=== PATIENT | male | born 1950 | race African-American/Black ===

== ENCOUNTER 2021-01-28 07:09 | Observation (INO) | payer MEDICARE, OTHER ==
[2021-01-28 10:41] VITALS: BMI 29.5
[2021-01-28] MEDS ORDERED: Dextrose 50% Abboject 50 ML SYRINGE SLOW IVP PRN (11:18)
[2021-01-28] MEDS ORDERED: Dextrose 5% in Water 1,000 ML IV PRN (11:18)
[2021-01-28] MEDS ORDERED: Ondansetron PF 4 MG/2 ML Vial IVP PRN (11:24)
[2021-01-28] MEDS ORDERED: HumaLOG 300 UNITS/3 ML VIAL SC PRN (11:24)
[2021-01-28] MEDS ORDERED: Acetaminophen 325 MG TAB PO PRN (11:24)
[2021-01-28] MEDS ORDERED: traZODone HCl 50 MG TAB PO PRN (12:00)
[2021-01-28] MEDS ORDERED: Sevelamer Carbonate 800 MG TAB PO SCH (12:00)
[2021-01-28] MEDS ORDERED: Nitroglycerin 0.4 MG TAB (25 Tab Bottle) SL PRN (12:18)
[2021-01-28 12:55] LABS: Troponin I 0.034 ng/mL (< 0.028)
[2021-01-28] MEDS ORDERED: Benzonatate 100 MG CAP PO SCH (15:00)
[2021-01-28 15:46] VITALS: BP 162/62; TEMP 98.5
[2021-01-28] MEDS ORDERED: Apixaban 5 MG TAB PO SCH (21:00)
[2021-01-28] MEDS ORDERED: Carvedilol 25 MG TAB PO SCH (21:00)
[2021-01-28] MEDS ORDERED: Atorvastatin Calcium 10 MG TAB PO SCH (21:00)
[2021-01-29] MEDS ORDERED: Aspirin 81 mg Enteric Coated Tablet PO SCH (09:00)
[2021-01-29] MEDS ORDERED: Amiodarone 200 MG TAB PO SCH (09:00)
[2021-01-29] MEDS ORDERED: Ezetimibe 10 MG TAB PO SCH (09:00)
[2021-01-29] MEDS ORDERED: Famotidine/PF 20 mg/2ml Vial SLOW IVP SCH (09:00)
== END 2021-01-28 17:10 | disposition home or self-care (01) ==
LOC: CSHTELE 10:30
PROVIDERS: ADMIT Internal Medicine; ATTEND Family Medicine
DX: R77.8 Other specified abnormalities of plasma proteins (principal); E11.22 Type 2 diabetes mellitus with diabetic chronic kidney disease; I12.0 Hypertensive chronic kidney disease with stage 5 chronic kidney disease or end stage renal disease; N18.6 End stage renal disease; I48.0 Paroxysmal atrial fibrillation; E78.5 Hyperlipidemia, unspecified; I25.10 Atherosclerotic heart disease of native coronary artery without angina pectoris; I73.9 Peripheral vascular disease, unspecified; Z79.899 Other long term (current) drug therapy; Z79.82 Long term (current) use of aspirin; Z95.5 Presence of coronary angioplasty implant and graft; E87.70 Fluid overload, unspecified
CPT/HCPCS: 36415; 36416; G0378; J1815

== ENCOUNTER 2021-03-21 01:37 | Inpatient (IN) | payer MEDICARE, MEDICAID ==
[2021-03-21] MEDS ORDERED: Dextrose 50% Abboject 50 ML SYRINGE SLOW IVP SCH (02:00)
[2021-03-21 02:41] LABS: #Eosinphils 0.2 10x3/uL (0.0-0.5); #Monocytes 0.7 10x3/uL (0.0-1.1); #Neutrophils 9.2 10x3/uL (1.5-8.4); %Basophils 0.4 % (0.0-2.0); %Eosinophils 1.4 % (0.0-6.0); %Lymphocytes 6.4 % (18.0-47.0); %Monocytes 6.6 % (0.0-10.0); %Neutrophils 84.6 % (40.0-75.0); Hemoglobin 7.2 g/dL (13.5-17.5); Mean Corpuscular Hemoglobin 24.7 pg (27.0-33.0); Mean Corpuscular Volume 88.3 fl (81.2-95.1); Mean Platelet Volume 10.8 fl (7.4-10.4); Platelet Count 433 10x3/uL (150-450); RBC Distribution Width 18.4 % (11.5-14.5); Red Blood Cell (RBC) Count 2.91 10x6/uL (4.32-5.72); White Blood Cell (WBC) Count 10.9 10x3/uL (3.5-10.5)
[2021-03-21] MEDS ORDERED: Cefepime 2 GM VIAL ONE (02:49)
[2021-03-21 02:55] LABS: ALT (SGPT) 10 U/L (8-55); AST (SGOT) 12 U/L (5-34); Albumin 2.9 g/dL (3.4-4.8); Alkaline Phosphatase 163 U/L (40-110); Anion Gap 15 mmol/L (10-20); BUN (Urea Nitrogen) 17 mg/dL (8.4-25.7); Bilirubin, Total 0.5 mg/dL (0.2-1.2); Calc. Creatinine Clearance 0 mL/min (70-130); Calcium 10.6 mg/dL (7.8-10.44); Carbon Dioxide 28 mmol/L (23-31); Chloride 100 mmol/L (98-107); Globulin 4.1 g/dL (2.4-3.5); Glucose 197 mg/dL (83-110); Potassium 4.6 mmol/L (3.5-5.1); Sodium 138 mmol/L (136-145)
[2021-03-21 03:14] LABS: Hypochromia SLIGHT = 6-15 cells (100X) (0-5/hpf); Polychromasia SLIGHT = 2-3 cells (100X) (0-2/hpf)
[2021-03-21 03:16] LABS: Platelet Morphology Comment Appears Increased
[2021-03-21 03:19] LABS: Bilirubin Neg (Negative); Blood, Urine 250 (Negative); Clarity Cloudy (Clear); Glucose, Urine (Dipstick) Normal (Negative); Ketone, Urine 5 mg/dL (Negative); Leukocyte 500 (Negative); Nitrite Negative (Negative); Protein, Urine (Dipstick) 100 mg/dl (Neg-Trace); Urobilinogen Normal mg/dL (Less than 2)
[2021-03-21 03:39] LABS: Bacteria/HPF 2+ HPF (None Seen); RBC/HPF Greater than 50 HPF (0-3); Squamous Epithelial 0-3 HPF (0-3); WBC/HPF Greater Than 50 HPF (0-3)
[2021-03-21 04:09] LABS: SARS-CoV-2 NAA Rapid Test Not Detected (NotDetected)
[2021-03-21] MEDS ORDERED: Acetaminophen 325 MG TAB PO PRN (05:26)
[2021-03-21] MEDS ORDERED: HumaLOG 300 UNITS/3 ML VIAL SC PRN (05:26)
[2021-03-21] MEDS ORDERED: Guaifenesin DM 100-10/5 ML UDCUP PO PRN (05:26)
[2021-03-21] MEDS ORDERED: Calcium Carbonate 500 MG ChewTAB PO PRN (05:26)
[2021-03-21] MEDS ORDERED: Dextrose 5% in Water 1,000 ML IV PRN (05:26)
[2021-03-21] MEDS ORDERED: Senokot S 8.6-50 MG TAB PO PRN (05:26)
[2021-03-21] MEDS ORDERED: Dextrose 50% Abboject 50 ML SYRINGE SLOW IVP PRN (05:26)
[2021-03-21] MEDS ORDERED: Zolpidem Tartrate 5 MG TAB PO PRN (05:26)
[2021-03-21] MEDS ORDERED: traZODone HCl 50 MG TAB PO PRN (05:31)
[2021-03-21] MEDS ORDERED: Albuterol 200 PUFF (6.7GM INHALER) INH PRN (05:31)
[2021-03-21] MEDS ORDERED: Bisacodyl 10 MG SUPP PR PRN (05:31)
[2021-03-21] MEDS ORDERED: Dextrose 10% in Water 1,000 ML IV SCH ×2 (05:45→18:30)
[2021-03-21] MEDS: Apixaban 5 MG TAB PO SCH ×3 (08:59→20:54)
[2021-03-21] MEDS: Sevelamer Carbonate 800 MG TAB PO SCH ×3 (08:59→17:13)
[2021-03-21] MEDS: Amiodarone 200 MG TAB PO SCH ×2 (08:59→09:13)
[2021-03-21] MEDS: Carvedilol 25 MG TAB PO SCH ×3 (08:59→20:51)
[2021-03-21] MEDS ORDERED: Cefepime 1 GM in Sodium Chloride 0.9% 100 ML IVPB SCH (09:00)
[2021-03-21] MEDS ORDERED: EPOETIN ALFA-EPBX (ESRD) 10,000 UNIT/ML VIAL SC SCH (09:00)
[2021-03-21] MEDS: Aspirin 81 mg Enteric Coated Tablet PO SCH (09:00)
[2021-03-21] MEDS: Ascorbic Acid 500 mg Chewable Tablet PO SCH ×2 (09:00→20:51)
[2021-03-21] MEDS ORDERED: prednisoLONE 1% Ophth Susp 5 ml Bottle EA EYE SCH (09:00)
[2021-03-21] MEDS: Cholecalciferol 1,000 UNITS (25 MCG) TAB PO SCH (09:01)
[2021-03-21] MEDS: Atorvastatin Calcium 10 MG TAB PO SCH (09:01)
[2021-03-21] MEDS: Cinacalcet HCl 30 MG TAB PO SCH (09:01)
[2021-03-21] MEDS: Polyethylene Glycol 3350 17 GM Packet PO SCH (09:02)
[2021-03-21] MEDS: hydrALAZINE 25 MG TAB PO SCH (09:03)
[2021-03-21] MEDS: Ferrous Sulfate 325 MG TAB PO SCH ×2 (09:03→20:51)
[2021-03-21] MEDS: Senokot S 8.6-50 MG TAB PO SCH ×2 (09:03→20:51)
[2021-03-21] MEDS: Timolol 0.5% Ophth Soln 5 ml Bottle EA EYE SCH ×2 (10:24→20:54)
[2021-03-21] MEDS ORDERED: EPOETIN ALFA-EPBX (ESRD) 4,000 UNIT/ML VIAL SC SCH (15:15)
[2021-03-21 18:48] LABS: #Eosinphils 0.2 10x3/uL (0.0-0.5); #Neutrophils 6.3 10x3/uL (1.5-8.4); %Basophils 0.4 % (0.0-2.0); %Eosinophils 2.4 % (0.0-6.0); %Lymphocytes 15.6 % (18.0-47.0); %Monocytes 11.5 % (0.0-10.0); %Neutrophils 69.8 % (40.0-75.0); Hemoglobin 6.6 g/dL (13.5-17.5); Mean Corpuscular HGB CONC 27.8 g/dL (32.0-36.0); Mean Corpuscular Hemoglobin 24.1 pg (27.0-33.0); Mean Corpuscular Volume 86.5 fl (81.2-95.1); Mean Platelet Volume 10.3 fl (7.4-10.4); Platelet Count 398 10x3/uL (150-450); RBC Distribution Width 18.6 % (11.5-14.5); Red Blood Cell (RBC) Count 2.74 10x6/uL (4.32-5.72)
[2021-03-21 19:09] LABS: Anisocytosis SLIGHT = 6-15 cells (100X) (0-5/hpf); Hypochromia MODERATE=16-30 cells (100X) (0-5/hpf); Platelet Morphology Comment Appears Adequate
[2021-03-21] MEDS: Ezetimibe 10 MG TAB PO SCH (20:54)
[2021-03-22] MEDS: Ondansetron PF 4 MG/2 ML Vial IVP PRN ×3 (00:35→20:56)
[2021-03-22 05:13] LABS: #Eosinphils 0.4 10x3/uL (0.0-0.5); #Monocytes 1.2 10x3/uL (0.0-1.1); #Neutrophils 6.8 10x3/uL (1.5-8.4); %Basophils 0.3 % (0.0-2.0); %Eosinophils 3.5 % (0.0-6.0); %Lymphocytes 18.5 % (18.0-47.0); %Monocytes 11.7 % (0.0-10.0); %Neutrophils 65.4 % (40.0-75.0); Mean Corpuscular HGB CONC 28.8 g/dL (32.0-36.0); Mean Corpuscular Hemoglobin 25.3 pg (27.0-33.0); Mean Corpuscular Volume 87.8 fl (81.2-95.1); Mean Platelet Volume 10.3 fl (7.4-10.4); Platelet Count 417 10x3/uL (150-450); RBC Distribution Width 17.8 % (11.5-14.5); Red Blood Cell (RBC) Count 2.37 10x6/uL (4.32-5.72); White Blood Cell (WBC) Count 10.4 10x3/uL (3.5-10.5)
[2021-03-22 05:16] LABS: Anion Gap 17 mmol/L (10-20); BUN (Urea Nitrogen) 28 mg/dL (8.4-25.7); Calc. Creatinine Clearance 22 mL/min (70-130); Carbon Dioxide 22 mmol/L (23-31); Chloride 98 mmol/L (98-107); Glucose 103 mg/dL (83-110); Potassium 4.6 mmol/L (3.5-5.1); Sodium 132 mmol/L (136-145)
[2021-03-22 06:28] LABS: #Basophils 0.1 10x3/uL (0.0-0.2); #Eosinphils 0.4 10x3/uL (0.0-0.5); #Monocytes 1.3 10x3/uL (0.0-1.1); #Neutrophils 6.4 10x3/uL (1.5-8.4); %Basophils 0.5 % (0.0-2.0); %Eosinophils 3.9 % (0.0-6.0); %Lymphocytes 17.4 % (18.0-47.0); %Monocytes 12.9 % (0.0-10.0); %Neutrophils 64.8 % (40.0-75.0); Hemoglobin 7.2 g/dL (13.5-17.5); Mean Corpuscular HGB CONC 29.1 g/dL (32.0-36.0); Mean Corpuscular Hemoglobin 25.4 pg (27.0-33.0); Mean Corpuscular Volume 87.3 fl (81.2-95.1); Mean Platelet Volume 10.3 fl (7.4-10.4); Platelet Count 353 10x3/uL (150-450); RBC Distribution Width 17.8 % (11.5-14.5); Red Blood Cell (RBC) Count 2.83 10x6/uL (4.32-5.72); White Blood Cell (WBC) Count 9.8 10x3/uL (3.5-10.5)
[2021-03-22 07:14] LABS: Anisocytosis SLIGHT = 6-15 cells (100X) (0-5/hpf); Hypochromia MODERATE=16-30 cells (100X) (0-5/hpf); Poikilocytosis SLIGHT = 6-15 cells (100X) (0-5/hpf); Polychromasia SLIGHT = 2-3 cells (100X) (0-2/hpf)
[2021-03-22 07:15] LABS: Ovalocytes SLIGHT = 2-5 cells (100X) (0-1/hpf); Schistocytes SLIGHT = 2-5 cells (100X) (0-1/hpf); Stomatocytes SLIGHT = 2-5 cells (100X) (0-1/hpf); Tear Drops SLIGHT = 2-5 cells (100X) (0-1/hpf)
[2021-03-22 07:16] LABS: Platelet Morphology Comment Appears Increased
[2021-03-22 07:21] LABS: Anisocytosis SLIGHT = 6-15 cells (100X) (0-5/hpf); Hypochromia MODERATE=16-30 cells (100X) (0-5/hpf); Ovalocytes SLIGHT = 2-5 cells (100X) (0-1/hpf); Poikilocytosis SLIGHT = 6-15 cells (100X) (0-5/hpf); Polychromasia SLIGHT = 2-3 cells (100X) (0-2/hpf); Schistocytes SLIGHT = 2-5 cells (100X) (0-1/hpf)
[2021-03-22 07:22] LABS: Platelet Morphology Comment Appears Adequate; Stomatocytes SLIGHT = 2-5 cells (100X) (0-1/hpf); Tear Drops SLIGHT = 2-5 cells (100X) (0-1/hpf)
[2021-03-22] MEDS: Amiodarone 200 MG TAB PO SCH (08:09)
[2021-03-22] MEDS: Ascorbic Acid 500 mg Chewable Tablet PO SCH ×2 (08:09→20:19)
[2021-03-22] MEDS: Aspirin 81 mg Enteric Coated Tablet PO SCH (08:09)
[2021-03-22] MEDS: Carvedilol 25 MG TAB PO SCH ×2 (08:09→21:51)
[2021-03-22] MEDS: Apixaban 5 MG TAB PO SCH ×2 (08:09→20:16)
[2021-03-22] MEDS: Ferrous Sulfate 325 MG TAB PO SCH ×2 (08:10→20:16)
[2021-03-22] MEDS: Cholecalciferol 1,000 UNITS (25 MCG) TAB PO SCH (08:10)
[2021-03-22] MEDS: hydrALAZINE 25 MG TAB PO SCH (08:10)
[2021-03-22] MEDS: Atorvastatin Calcium 10 MG TAB PO SCH (08:10)
[2021-03-22] MEDS: Sevelamer Carbonate 800 MG TAB PO SCH ×3 (08:11→17:09)
[2021-03-22] MEDS: Cinacalcet HCl 30 MG TAB PO SCH (08:11)
[2021-03-22] MEDS: Polyethylene Glycol 3350 17 GM Packet PO SCH (08:12)
[2021-03-22] MEDS: Senokot S 8.6-50 MG TAB PO SCH ×2 (08:12→20:19)
[2021-03-22] MEDS: Timolol 0.5% Ophth Soln 5 ml Bottle EA EYE SCH ×2 (08:16→21:52)
[2021-03-22] MEDS: Cefepime 0.5 GM, Admixture Fee 1 EACH in Sodium Chloride 0.9% 50 ML IVPB SCH (08:21)
[2021-03-22] MEDS: HYDROcodone/Acetaminophen 5/325 mg Tablet PO PRN (08:24)
[2021-03-22] MEDS ORDERED: prednisoLONE 1% Ophth Susp 5 ml Bottle EA EYE SCH (09:00)
[2021-03-22 15:18] LABS: Hep B Surf Ag Non-Reactive S/CO (NonReactive)
[2021-03-22 15:21] LABS: HBSAg Index 0.31 S/CO (0-0.99)
[2021-03-22] MEDS: Ezetimibe 10 MG TAB PO SCH (20:16)
[2021-03-23] MEDS: HYDROcodone/Acetaminophen 5/325 mg Tablet PO PRN ×3 (01:07→16:33)
[2021-03-23] MEDS: Cefepime 0.5 GM, Admixture Fee 1 EACH in Sodium Chloride 0.9% 50 ML IVPB SCH (07:41)
[2021-03-23] MEDS: Polyethylene Glycol 3350 17 GM Packet PO SCH (07:42)
[2021-03-23] MEDS: Sevelamer Carbonate 800 MG TAB PO SCH ×3 (07:42→16:33)
[2021-03-23] MEDS: Cinacalcet HCl 30 MG TAB PO SCH (07:43)
[2021-03-23] MEDS: Apixaban 5 MG TAB PO SCH ×2 (07:43→20:28)
[2021-03-23] MEDS: Ferrous Sulfate 325 MG TAB PO SCH ×2 (07:44→20:28)
[2021-03-23] MEDS: Aspirin 81 mg Enteric Coated Tablet PO SCH (07:44)
[2021-03-23] MEDS: Atorvastatin Calcium 10 MG TAB PO SCH (07:44)
[2021-03-23] MEDS: hydrALAZINE 25 MG TAB PO SCH (07:44)
[2021-03-23] MEDS: Carvedilol 25 MG TAB PO SCH ×2 (07:44→20:28)
[2021-03-23] MEDS: Ascorbic Acid 500 mg Chewable Tablet PO SCH ×2 (07:45→20:28)
[2021-03-23] MEDS: Cholecalciferol 1,000 UNITS (25 MCG) TAB PO SCH (07:45)
[2021-03-23] MEDS: Amiodarone 200 MG TAB PO SCH (07:45)
[2021-03-23] MEDS: Timolol 0.5% Ophth Soln 5 ml Bottle EA EYE SCH ×2 (07:55→20:11)
[2021-03-23] MEDS: Senokot S 8.6-50 MG TAB PO SCH ×2 (07:56→20:28)
[2021-03-23 10:43] VITALS: BMI 36.6
[2021-03-23 12:49] LABS: HBSAB Concentration 70.26 mIU/mL; Hep B Surf AB Reactive (NonReactive)
[2021-03-23] MEDS: Ondansetron PF 4 MG/2 ML Vial IVP PRN ×2 (16:33→21:42)
[2021-03-23] MEDS: Ezetimibe 10 MG TAB PO SCH (20:28)
[2021-03-24] MEDS: Timolol 0.5% Ophth Soln 5 ml Bottle EA EYE SCH ×2 (08:30→21:50)
[2021-03-24] MEDS: Ondansetron PF 4 MG/2 ML Vial IVP PRN (09:41)
[2021-03-24] MEDS: Cefepime 0.5 GM, Admixture Fee 1 EACH in Sodium Chloride 0.9% 50 ML IVPB SCH (10:00)
[2021-03-24] MEDS: HYDROcodone/Acetaminophen 5/325 mg Tablet PO PRN (11:17)
[2021-03-24] MEDS: Sevelamer Carbonate 800 MG TAB PO SCH ×3 (14:30→17:20)
[2021-03-24] MEDS: Aspirin 81 mg Enteric Coated Tablet PO SCH (14:32)
[2021-03-24] MEDS: Ascorbic Acid 500 mg Chewable Tablet PO SCH ×2 (14:32→21:48)
[2021-03-24] MEDS: Atorvastatin Calcium 10 MG TAB PO SCH (14:32)
[2021-03-24] MEDS: Apixaban 5 MG TAB PO SCH ×2 (14:32→21:47)
[2021-03-24] MEDS: Carvedilol 25 MG TAB PO SCH ×2 (14:32→21:47)
[2021-03-24] MEDS: Ferrous Sulfate 325 MG TAB PO SCH ×2 (14:32→21:48)
[2021-03-24] MEDS: hydrALAZINE 25 MG TAB PO SCH (14:33)
[2021-03-24] MEDS: Amiodarone 200 MG TAB PO SCH (14:33)
[2021-03-24] MEDS: Cholecalciferol 1,000 UNITS (25 MCG) TAB PO SCH (14:33)
[2021-03-24] MEDS: Cinacalcet HCl 30 MG TAB PO SCH (14:33)
[2021-03-24] MEDS: Polyethylene Glycol 3350 17 GM Packet PO SCH (14:34)
[2021-03-24] MEDS: Senokot S 8.6-50 MG TAB PO SCH ×2 (14:34→21:48)
[2021-03-24] MEDS: Fluconazole 100 MG TAB PO SCH (14:53)
[2021-03-24] MEDS: Ezetimibe 10 MG TAB PO SCH (21:48)
[2021-03-25] MEDS: HYDROcodone/Acetaminophen 5/325 mg Tablet PO PRN (01:16)
[2021-03-25] MEDS: Ondansetron PF 4 MG/2 ML Vial IVP PRN (08:43)
[2021-03-25] MEDS: Sevelamer Carbonate 800 MG TAB PO SCH (10:53)
[2021-03-25] MEDS: Polyethylene Glycol 3350 17 GM Packet PO SCH (10:53)
[2021-03-25] MEDS: Atorvastatin Calcium 10 MG TAB PO SCH (10:54)
[2021-03-25] MEDS: Cinacalcet HCl 30 MG TAB PO SCH (10:54)
[2021-03-25] MEDS: Amiodarone 200 MG TAB PO SCH (10:54)
[2021-03-25] MEDS: Ferrous Sulfate 325 MG TAB PO SCH (10:54)
[2021-03-25] MEDS: Apixaban 5 MG TAB PO SCH (10:54)
[2021-03-25] MEDS: Cholecalciferol 1,000 UNITS (25 MCG) TAB PO SCH (10:55)
[2021-03-25] MEDS: Aspirin 81 mg Enteric Coated Tablet PO SCH (10:55)
[2021-03-25] MEDS: Carvedilol 25 MG TAB PO SCH (10:55)
[2021-03-25] MEDS: hydrALAZINE 25 MG TAB PO SCH (10:55)
[2021-03-25] MEDS: Ascorbic Acid 500 mg Chewable Tablet PO SCH (10:56)
[2021-03-25] MEDS: Cefepime 0.5 GM, Admixture Fee 1 EACH in Sodium Chloride 0.9% 50 ML IVPB SCH (10:58)
[2021-03-25] MEDS: Senokot S 8.6-50 MG TAB PO SCH (10:59)
[2021-03-25] MEDS: Timolol 0.5% Ophth Soln 5 ml Bottle EA EYE SCH (10:59)
[2021-03-25] MEDS: Fluconazole 100 MG TAB PO SCH (11:02)
[2021-03-25 14:15] VITALS: BP 110/57; TEMP 97.5
== END 2021-03-25 13:05 | disposition home or self-care (01) | DRG 871 ==
LOC: CSHERS 01:37 → CSHICU 06:26 → CSHTELE 03-22 17:58
PROVIDERS: ADMIT Student in an Organized Health Care Education/Training Program; ATTEND Internal Medicine
PROC: 30233N1 Transfusion of Nonautologous Red Blood Cells into Peripheral Vein, Percutaneous Approach (ICD-10-PCS; principal; 2021-03-22)
PROC: 5A1D70Z Performance of Urinary Filtration, Intermittent, Less than 6 Hours Per Day (ICD-10-PCS; 2021-03-22)
DX: A41.9 Sepsis, unspecified organism (principal); N18.6 End stage renal disease; N39.0 Urinary tract infection, site not specified; I48.20 Chronic atrial fibrillation, unspecified; J98.11 Atelectasis; I12.0 Hypertensive chronic kidney disease with stage 5 chronic kidney disease or end stage renal disease; Z20.822 Contact with and (suspected) exposure to COVID-19; E11.649 Type 2 diabetes mellitus with hypoglycemia without coma; D63.1 Anemia in chronic kidney disease; E11.22 Type 2 diabetes mellitus with diabetic chronic kidney disease; E78.5 Hyperlipidemia, unspecified; I25.10 Atherosclerotic heart disease of native coronary artery without angina pectoris; E11.43 Type 2 diabetes mellitus with diabetic autonomic (poly)neuropathy; K31.84 Gastroparesis; Z99.2 Dependence on renal dialysis; Z79.4 Long term (current) use of insulin; Z91.041 Radiographic dye allergy status; Z88.0 Allergy status to penicillin; Z79.82 Long term (current) use of aspirin; Z79.899 Other long term (current) drug therapy; Z79.891 Long term (current) use of opiate analgesic; Z95.5 Presence of coronary angioplasty implant and graft; Z79.01 Long term (current) use of anticoagulants; Z89.411 Acquired absence of right great toe; Z91.011 Allergy to milk products; Z98.41 Cataract extraction status, right eye
CPT/HCPCS: 36415; 36416; 36430; 71045; 74176; 80048; 80053; 81003; 81015; 83036; 83605; 84443; 85025; 86706; 86850; 86900; 86901; 87040; 87086; 87149; 87340; 90935; 93005; 94760; G0257; J0692; J1815; J2405; J3370; P9016; Q5105; U0002

== ENCOUNTER 2021-03-28 09:36 | Emergency (ER) | payer MEDICARE, OTHER ==
[2021-03-28 10:13] LABS: #Basophils 0.1 10x3/uL (0.0-0.2); #Eosinphils 0.3 10x3/uL (0.0-0.5); #Monocytes 0.8 10x3/uL (0.0-1.1); #Neutrophils 8.2 10x3/uL (1.5-8.4); %Basophils 0.7 % (0.0-2.0); %Eosinophils 2.5 % (0.0-6.0); %Lymphocytes 11.1 % (18.0-47.0); %Monocytes 7.5 % (0.0-10.0); %Neutrophils 77.8 % (40.0-75.0); Hemoglobin 9.9 g/dL (13.5-17.5); Mean Corpuscular HGB CONC 29.1 g/dL (32.0-36.0); Mean Corpuscular Hemoglobin 25.2 pg (27.0-33.0); Mean Corpuscular Volume 86.5 fl (81.2-95.1); Mean Platelet Volume 10.2 fl (7.4-10.4); Platelet Count 342 10x3/uL (150-450); RBC Distribution Width 20.2 % (11.5-14.5); Red Blood Cell (RBC) Count 3.93 10x6/uL (4.32-5.72); White Blood Cell (WBC) Count 10.5 10x3/uL (3.5-10.5)
[2021-03-28] MEDS ORDERED: diphenhydrAMINE 50 MG/ML VIAL ONE (10:35)
[2021-03-28] MEDS ORDERED: methylPREDNISolone Sod Succ 40 MG VIAL ONE (10:35)
[2021-03-28] MEDS ORDERED: Famotidine/PF 20 mg/2ml Vial ONE (10:35)
[2021-03-28 10:42] LABS: ALT (SGPT) 12 U/L (8-55); Albumin 3.1 g/dL (3.4-4.8); Alkaline Phosphatase 165 U/L (40-110); Anion Gap 18 mmol/L (10-20); BUN (Urea Nitrogen) 31 mg/dL (8.4-25.7); Bilirubin, Total 0.5 mg/dL (0.2-1.2); Calc. Creatinine Clearance 0 mL/min (70-130); Calcium 10.5 mg/dL (7.8-10.44); Carbon Dioxide 24 mmol/L (23-31); Chloride 99 mmol/L (98-107); Glucose 81 mg/dL (83-110); Lipase 8 U/L (8-78); Potassium 5.7 mmol/L (3.5-5.1); Protein, Total 7.1 g/dL (5.8-8.1); Sodium 135 mmol/L (136-145)
[2021-03-28 10:49] LABS: AST (SGOT) 35 U/L (5-34)
[2021-03-28 10:55] LABS: CKMB 1.9 ng/mL (0-6.6)
[2021-03-28 14:00] LABS: SARS-CoV-2 NAA Rapid Test Not Detected (NotDetected)
[2021-03-28] MEDS ORDERED: Cefepime 2 GM VIAL ONE (16:40)
== END 2021-03-28 17:51 | disposition short-term general hospital (02) ==
LOC: CSHERS 09:36
DX: I50.9 Heart failure, unspecified (principal); E87.5 Hyperkalemia; L03.213 Periorbital cellulitis; E11.22 Type 2 diabetes mellitus with diabetic chronic kidney disease; N18.9 Chronic kidney disease, unspecified; Z99.2 Dependence on renal dialysis; Z20.822 Contact with and (suspected) exposure to COVID-19; Z79.01 Long term (current) use of anticoagulants; Z79.82 Long term (current) use of aspirin; Z79.52 Long term (current) use of systemic steroids; Z79.899 Other long term (current) drug therapy
CPT/HCPCS: 70481; 71045; 80053; 82553; 83605; 83690; 83880; 84484; 85025; 87040; 93005; U0002; 90935; 96365; 96367; 96375; G0257; J0692; J1200; J2920; J3370; S0028

== ENCOUNTER 2021-08-21 09:13 | Outpatient (CLI) | payer MEDICARE, OTHER | END 2021-08-21 09:14 | disposition home or self-care (01) | LOC: CSHWCC 09:13 | PROVIDERS: ATTEND Nurse Practitioner Family | DX: L89.894 Pressure ulcer of other site, stage 4 (principal); L89.892 Pressure ulcer of other site, stage 2; L89.620 Pressure ulcer of left heel, unstageable ==

== ENCOUNTER 2021-10-07 15:06 | Outpatient (CLI) | payer OTHER, MEDICAID | END 2021-10-07 15:07 | disposition home or self-care (01) | LOC: CSHWCC 15:06 | PROVIDERS: ATTEND Nurse Practitioner Family | DX: L89.620 Pressure ulcer of left heel, unstageable (principal); L89.892 Pressure ulcer of other site, stage 2; L89.894 Pressure ulcer of other site, stage 4 ==

== ENCOUNTER 2021-11-26 15:35 | Outpatient (CLI) | payer MEDICARE, OTHER | END 2021-11-26 15:36 | disposition home or self-care (01) | LOC: CSHWCC 15:35 | PROVIDERS: ATTEND Nurse Practitioner Family | DX: L89.620 Pressure ulcer of left heel, unstageable (principal); L89.894 Pressure ulcer of other site, stage 4; L89.892 Pressure ulcer of other site, stage 2 | CPT/HCPCS: 11043; 99213; G0463 ==